=== PATIENT | male | born 1985 | race African-American/Black ===

== ENCOUNTER 2021-02-24 12:19 | Emergency (ER) | payer MEDICAID ==
[~2021-02-24] VITALS: Ht 182.9 cm; Wt 82.0 kg
[2021-02-24 13:21] VITALS: BP 135/86
[2021-02-24] MEDS ORDERED: ONDANSETRON 4MG ODT PO ONE (13:45)
[2021-02-24] MEDS ORDERED: DEXTL MT (14:10)
[2021-02-24] MEDS ORDERED: ONDA4TAB5 MT (14:10)
== END 2021-02-24 14:34 | disposition home or self-care (01) ==
LOC: ER 12:19
DX: U07.1 COVID-19 (principal); Z13.9 Encounter for screening, unspecified
CPT/HCPCS: 71045; 99283; Q0162

== ENCOUNTER 2022-08-04 22:18 | Emergency (ER) | payer MEDICAID ==
[~2022-08-04] VITALS: Ht 180.3 cm; Wt 80.0 kg
[~2022-08-04 22:18] MED LIST: DEXTL MT; ONDA4TAB5 MT
[2022-08-04 22:27] VITALS: BP 167/106
[2022-08-05] MEDS ORDERED: DOXY100T2 MT (01:41)
[2022-08-05] MEDS ORDERED: LIDOCAINE HCL/PF 1% 10 MG/ML 5ML VIAL INFIL ONE (01:45)
[2022-08-05] MEDS ORDERED: CEFTRIAXONE SODIUM 500 MG/VIAL IM ONE (01:45)
[2022-08-05 03:34] LABS: CLARITY URINE CLOUDY (CLEAR); COLOR URINE YELLOW (YELLOW); KETONES URINE NEGATIVE (NEGATIVE); LEUKOCYTE ESTERASE URINE 2+ (NEGATIVE); NITRITE URINE NEGATIVE (NEGATIVE); OCCULT BLOOD URINE 1+ (NEGATIVE); PH URINE 5.5 (4.5-8.0); PROTEIN URINE 1+ (NEGATIVE); SPECIFIC GRAVITY URINE 1.033 (1.005-1.030)
== END 2022-08-05 02:35 | disposition home or self-care (01) ==
LOC: ER 22:18
DX: R36.9 Urethral discharge, unspecified (principal); R30.0 Dysuria; Z20.2 Contact with and (suspected) exposure to infections with a predominantly sexual mode of transmission
CPT/HCPCS: 81001; 81003; 87086; 96372; 99283; J0696; J3490

== ENCOUNTER 2024-03-25 06:39 | Inpatient (IN) | payer MEDICAID ==
[~2024-03-25] VITALS: Ht 182.9 cm; Wt 66.7 kg
[~2024-03-25 06:39] MED LIST changes: +DOXY100T2 MT
[2024-03-25] MEDS ORDERED: ONDANSETRON HCL 4MG TABLET PO ONE (10:30)
[2024-03-25 10:59] LABS: BASOPHILS % 0.5 % (0.0-2.0); DIFFERENTIAL COMMENT 0; EOSINOPHILS % 0.1 % (0.0-5.0); HEMATOCRIT. 55.3 % (42.0-52.0); LYMPHOCYTES % 16.2 % (20.0-50.0); MEAN CORPUSCULAR HEMOGLOBIN 30.8 pg (28.0-32.0); MEAN CORPUSCULAR HGB CONC 34.4 g/dL (31.0-37.0); MEAN CORPUSCULAR VOLUME 89.5 fL (80.0-94.0); MEAN PLATELET VOLUME 10.2 fl (7.4-10.4); MONOCYTES % 9.3 % (2.0-8.0); NEUTROPHILS % 73.9 % (40.0-76.0); PLATELET 245 x1000/uL (130-400); RED BLOOD CELL COUNT 6.18 mill/uL (4.7-6.1); RED CELL DISTRIBUTION WIDTH 13.7 % (11.6-14.6); WHITE BLOOD COUNT 6.5 x1000/uL (4.5-11.0)
[2024-03-25 11:17] LABS: CHLORIDE 98 mEq/L (98-107); POTASSIUM 3.9 mEq/L (3.5-5.1); SODIUM 136 mEq/L (136-145)
[2024-03-25 11:18] LABS: CALCIUM 10.5 mg/dL (8.7-10.4); CARBON DIOXIDE 18 mEq/L (21-32)
[2024-03-25 11:23] LABS: GLUCOSE 165 mg/dL (70-105); UREA NITROGEN BLOOD 72 mg/dL (9-23)
[2024-03-25 11:25] LABS: ALANINE AMINOTRANSFERASE 9 IU/L (10-49); ASPARTATE AMINOTRANSFERASE 18 IU/L (<34); BILIRUBIN TOTAL 1.4 mg/dL (0.1-1.0); PROTEIN TOTAL 9.5 g/dL (6.0-8.3)
[2024-03-25 11:37] LABS: ALBUMIN 5.9 g/dL (3.2-4.8)
[2024-03-25 11:49] LABS: CREATININE 5.4 mg/dL (0.6-1.3); PHOSPHORUS 11.1 mg/dL (2.5-4.9)
[2024-03-25] MEDS: SODIUM CHLORIDE 0.9% 1,000 ML IV ONE (12:09)
[2024-03-25] MEDS: DICYCLOMINE HCL 10MG/ML 2ML VIAL IM ONE (12:09)
[2024-03-25] MEDS: ONDANSETRON HCL 4MG/2ML INJ IV ONE (12:22)
[2024-03-25 12:48] LABS: CLARITY URINE CLEAR (CLEAR); COLOR URINE YELLOW (YELLOW); GLUCOSE URINE NEGATIVE (NEGATIVE); KETONES URINE NEGATIVE (NEGATIVE); LEUKOCYTE ESTERASE URINE NEGATIVE (NEGATIVE); NITRITE URINE NEGATIVE (NEGATIVE); OCCULT BLOOD URINE NEGATIVE (NEGATIVE); PROTEIN URINE 1+ (NEGATIVE); SPECIFIC GRAVITY URINE 1.021 (1.005-1.030); UROBILINOGEN URINE 0.2 E.U./dL (0.2-1.0)
[2024-03-25 12:50] LABS: TROPONIN I HIGH SENSITIVITY 7 ng/L (3.0-53)
[2024-03-25 12:51] LABS: CREATINE KINASE 540 IU/L (46-171)
[2024-03-25 13:00] LABS: *AMPHETAMINES SCREEN URINE NEGATIVE (NEGATIVE); *BARBITURATES SCREEN URINE NEGATIVE (NEGATIVE); *BENZODIAZEPINES SCREEN URINE NEGATIVE (NEGATIVE); *COCAINE SCREEN URINE NEGATIVE (NEGATIVE); CANNABINOID URINE SCREEN NEGATIVE (NEGATIVE); ECSTASY MDMA SCREEN URINE NEGATIVE (NEGATIVE); METHADONE URINE SCREEN NEGATIVE (NEGATIVE); OPIATES URINE SCREEN NEGATIVE (NEGATIVE); PHENCYCLIDINE URINE SCREEN PRESUMTIVE POSITIVE (NEGATIVE)
[2024-03-25 13:04] LABS: BETA HYDROXYBUTYRATE 0.4 mMol/L (0.0-0.3)
[2024-03-25 13:08] LABS: BACTERIA URINE 1+; RBC URINE NONE SEEN /hpf (0-2); SQUAMOUS EPITHELIAL CELL URINE NONE SEEN /lpf (RARE/1+); YEAST URINE NONE SEEN
[2024-03-25 13:10] LABS: HYALINE CASTS URINE 0-5 /lpf
[2024-03-25 13:25] LABS: BG BASE EXCESS -1.5 mmol/L (-2.0-3.0); BG CARBOXYHEMOGLOBIN 0.2 % (0.5-1.5); BG DEOXYHEMOGLOBIN 1.4 % (0.0-5.0); BG FRACTION INSPIRED OXYGEN 21; BG HCO3 ACT 19.3 mmol/L (21.0-28.0); BG METHEMOGLOBIN 0.2 % (0.5-1.5); BG OXYGEN SATURATION 98.6 % (94.0-98.0); BG OXYHEMOGLOBIN 98.2 % (94.0-98.0); BG PCO2 25.5 mmHg (35.0-48.0); BG PH 7.496 (7.350-7.450); BG PO2 123.1 mmHg (83.0-108.0); BG SAMPLE SITE RIGHT BRACHIAL; BG TOTAL HEMOGLOBIN 19.7 g/dL (13.5-17.5); BG VENT MODE ROOM AIR
[2024-03-25] MEDS ORDERED: CLONIDINE 0.1MG TABLET PO PRN (14:45)
[2024-03-25] MEDS ORDERED: GUAIFENESIN 200MG/10ML SUGAR FREE UDC PO PRN (14:45)
[2024-03-25] MEDS ORDERED: IPRATROPIUM/ALBUTEROL 0.5-3(2.5)MG/3ML NEB HHN PRN (14:45)
[2024-03-25] MEDS ORDERED: MAGNESIUM/ALUMINUM HYDROXIDE/SIMETHICONE 30ML UDC PO PRN (14:45)
[2024-03-25] MEDS ORDERED: DOCUSATE SODIUM 100MG CAPSULE PO PRN (14:45)
[2024-03-25] MEDS ORDERED: ACETAMINOPHEN 325MG TABLET PO PRN ×2 (14:45)
[2024-03-25 15:34] VITALS: BP 134/96; PULSE 89; RESP 23; TEMP 36.6404
[2024-03-25 16:00] VITALS: BP 134/96; PULSE 89; RESP 23; TEMP 36.61404; O2SAT 99
[2024-03-25] MEDS: SEVELAMER CARBONATE 800 MG TABLET PO SCH (16:25)
[2024-03-25] MEDS: SODIUM CHLORIDE 0.9% 1,000 ML IV SCH (16:26)
[2024-03-25] MEDS: ENOXAPARIN 30MG/0.3ML SYR SUBCUT SCH (16:26)
[2024-03-25] MEDS ORDERED: DEXTROSE 50% WATER 50ML SYRINGE IV PRN (17:15)
[2024-03-25 20:00] VITALS: BP 137/95; PULSE 96; RESP 16; TEMP 37.00296; O2SAT 99
[2024-03-25 20:40] LABS: CARBON DIOXIDE 23 mEq/L (21-32); CHLORIDE 100 mEq/L (98-107); POTASSIUM 3.4 mEq/L (3.5-5.1); SODIUM 136 mEq/L (136-145)
[2024-03-25 20:41] LABS: CALCIUM 9.7 mg/dL (8.7-10.4)
[2024-03-25 20:45] LABS: CREATININE 4.2 mg/dL (0.6-1.3); D-DIMER 0.23 mg/L FEU (<0.50); INR 1.1; PARTIAL THROMBOPLASTIN TIME 33.8 sec (23.4-31.0); PROTHROMBIN TIME 12.6 sec (9.6-11.0)
[2024-03-25 20:46] LABS: GLUCOSE 138 mg/dL (70-105); UREA NITROGEN BLOOD 90 mg/dL (9-23)
[2024-03-25 20:48] LABS: BILIRUBIN DIRECT 0.3 mg/dL (<=3.0); PHOSPHORUS 7.7 mg/dL (2.5-4.9)
[2024-03-25] MEDS: BLOOD SUGAR DIAGNOSTIC STRIP TEST SCH (21:59)
[2024-03-26] VITALS (8 sets, daily range): BP systolic 130–138; BP diastolic 86–96; PULSE 78–94; RESP 14–22; TEMP 36.44736–36.78072; O2SAT 98–99
[2024-03-26 00:05] LABS: CREATINE KINASE 732 IU/L (46-171)
[2024-03-26 06:29] LABS: BASOPHILS % 0.4 % (0.0-2.0); EOSINOPHILS % 0.5 % (0.0-5.0); LYMPHOCYTES % 12.2 % (20.0-50.0); MEAN CORPUSCULAR HEMOGLOBIN 30.3 pg (28.0-32.0); MEAN CORPUSCULAR VOLUME 89.1 fL (80.0-94.0); MEAN PLATELET VOLUME 10.2 fl (7.4-10.4); MONOCYTES % 14.2 % (2.0-8.0); NEUTROPHILS % 72.7 % (40.0-76.0); PLATELET 193 x1000/uL (130-400); RED BLOOD CELL COUNT 5.28 mill/uL (4.7-6.1); RED CELL DISTRIBUTION WIDTH 13.1 % (11.6-14.6); WHITE BLOOD COUNT 6.1 x1000/uL (4.5-11.0)
[2024-03-26 06:31] LABS: POTASSIUM 3.5 mEq/L (3.5-5.1)
[2024-03-26 06:32] LABS: CALCIUM 9.8 mg/dL (8.7-10.4)
[2024-03-26 06:40] LABS: T4 FREE 1.05 ng/dL (0.89-1.76)
[2024-03-26 06:41] LABS: THYROID STIMULATING HORMONE 1.98 uIU/mL (0.55-4.78)
[2024-03-26] MEDS: ONDANSETRON HCL 4MG/2ML INJ IV PRN (09:42)
[2024-03-26] MEDS: POTASSIUM CHLORIDE 20MEQ TABLET SR PO NR (20:10)
[2024-03-27 00:14] VITALS: BP 124/85; PULSE 82; RESP 14; TEMP 36.72516; O2SAT 100
[2024-03-27 04:22] VITALS: BP 124/80; PULSE 68; RESP 16; TEMP 36.44736; O2SAT 98
[2024-03-27 06:50] LABS: CALCIUM 9.3 mg/dL (8.7-10.4); CHLORIDE 100 mEq/L (98-107); POTASSIUM 3.7 mEq/L (3.5-5.1); SODIUM 135 mEq/L (136-145)
[2024-03-27 06:51] LABS: CARBON DIOXIDE 28 mEq/L (21-32)
[2024-03-27 06:56] LABS: GLUCOSE 104 mg/dL (70-105); UREA NITROGEN BLOOD 48 mg/dL (9-23)
[2024-03-27 06:57] LABS: CREATINE KINASE 336 IU/L (46-171)
[2024-03-27 06:58] LABS: PHOSPHORUS 2.3 mg/dL (2.5-4.9)
[2024-03-27 07:00] LABS: CREATININE 1.7 mg/dL (0.6-1.3)
[2024-03-27 08:00] VITALS: BP 138/76; PULSE 94; RESP 18; TEMP 36.78072; O2SAT 99
[2024-03-27 08:47] LABS: HEMATOCRIT. 41.2 % (42.0-52.0); HEMOGLOBIN. 14.4 g/dL (14.0-18.0); MEAN CORPUSCULAR VOLUME 88.6 fL (80.0-94.0); MEAN PLATELET VOLUME 10.9 fl (7.4-10.4); PLATELET 169 x1000/uL (130-400); RED BLOOD CELL COUNT 4.65 mill/uL (4.7-6.1); RED CELL DISTRIBUTION WIDTH 12.9 % (11.6-14.6); WHITE BLOOD COUNT 3.8 x1000/uL (4.5-11.0)
[2024-03-27 08:50] LABS: DIFFERENTIAL COMMENT 1
[2024-03-27 14:13] VITALS: BP 134/76; PULSE 76; TEMP 98.1; O2SAT 99
[2024-03-27 21:50] LABS: PLATELET ESTIMATE NORMAL
== END 2024-03-27 15:31 | disposition home or self-care (01) | DRG 249 ==
LOC: ER 06:47 → EDBEDREQ 12:04 → EDBEDREQTM 13:25 → EDBEDREQ 13:25 → 3WST 15:27
PROVIDERS: ADMIT Hospitalist; ATTEND Hospitalist
DX: K52.9 Noninfective gastroenteritis and colitis, unspecified (principal); E88.89 Other specified metabolic disorders; E87.4 Mixed disorder of acid-base balance; R65.10 Systemic inflammatory response syndrome (SIRS) of non-infectious origin without acute organ dysfunction; N17.9 Acute kidney failure, unspecified; E83.39 Other disorders of phosphorus metabolism; E86.0 Dehydration; R73.9 Hyperglycemia, unspecified; D75.1 Secondary polycythemia; F16.10 Hallucinogen abuse, uncomplicated; F17.210 Nicotine dependence, cigarettes, uncomplicated; E87.6 Hypokalemia; F32.9 Major depressive disorder, single episode, unspecified; L84 Corns and callosities; S90.822A Blister (nonthermal), left foot, initial encounter; X58.XXXA Exposure to other specified factors, initial encounter; R26.89 Other abnormalities of gait and mobility; Z79.1 Long term (current) use of non-steroidal anti-inflammatories (NSAID); Y93.89 Activity, other specified; Y92.89 Other specified places as the place of occurrence of the external cause; Y99.8 Other external cause status
CPT/HCPCS: 36415; 36600; 71045; 76770; 80048; 80053; 80305; 81003; 82010; 82248; 82375; 82550; 82668; 82805; 82962; 83036; 83605; 83735; 83970; 84100; 84439; 84443; 84484; 85025; 85044; 85379; 93005; 99291; J0500; J1650; J2405; J7030; Q0162